=== PATIENT | female | born 1960 | race Asian ===

== ENCOUNTER 2024-07-28 16:38 | Emergency (ER) | payer OTHER, SELFPAY ==
[2024-07-28 16:41] VITALS: BP 153/90
--- NOTE | 2024-07-28 16:45 | ED.GENMED ---
History of Present Illness
General
Chief Complaint: Heart Rate Problem
Time Seen by Provider: 07/28/24 16:44
History of Present Illness
History of Present Illness:
Patient is a 63-year-old woman with history of thyroid cancer status post thyroidectomy currently on levothyroxine presenting to the emergency department with SVT that is now resolved. Patient states that she was sitting watching TV when she
noticed that she was having palpitations. She checked her Apple Watch and her heart rate was in the 170s. She tried readjusting positions and relaxing however it remained elevated for 30 minutes. Her friend then drove [facility] and she
was found to be in SVT. Medics were called and they gave her 6 mg adenosine rate response. Patient is now back to her baseline. She denies any chest pain or chest pain with exertion or shortness of breath. She states that she drinks a small
amount of wine every night before bed. N drinks 1 cup of coffee in the morning. o other drug use. Denies any leg swelling hemoptysis pleuritic pain recent travel or malignancy. She has never seen a arch support technician. Has never happened to her
before. No recent illnesses. Patient does state that she recently started seeing a primary care doctor and she was having issues with her thyroid numbers being off. She does state that most recently they were almost normal and they medication was
adjusted.
Past History
Past History
ED Past Medical History: None
ED Past Surgical History: Other (Thyroidectomy)
Social History
Tobacco: Non-smoker
Alcohol: None
Personal:
Living: with family
Phy Exam
Physical Exam
Physical Exam:
GENERAL: in no acute distress
HEENT: normocephalic, extraocular movements intact, moist oral mucosa
NECK: normal inspection
RESPIRATORY: no respiratory distress, clear to auscultation bilaterally
CARDIOVASCULAR: regular rate and rhythm
ABDOMEN/: soft, non-distended, non-tender to palpation, no rebound or guarding
EXTREMITIES: non-tender, no edema/swelling
NEUROLOGIC: awake and alert, moves all extremities
SKIN: warm
Course
Orders/Labs/Results
Orders:
Orders
07/28/24 16:44
Electrocardiogram (*1) Urgent
Reason for Study: Palpitations
EKG- Treatment ONCE
07/28/24 16:48
Basic Metabolic Panel Urgent
Complete Blood Count/With Diff Urgent
Free T4 Urgent
Magnesium Urgent
Thyroid profile [TSH Reflex To Free T4] Urgent
Abnormal Lab Results
07/28/24
16:48
Hct 36.9 L %
(37.0-47.0)
BUN 27 H mg/dl
(7-17)
Glucose 187 H mg/dl
(70-99)
TSH (Reflex) 38.70 H uIU/ml
(0.47-4.68)
Free T4 0.75 L ng/dl
(0.78-2.19)
07/28/24 16:48
07/28/24 16:48
Vital Signs
Initial and Last Documented VS:
Initial Vital Signs
Temp Pulse Resp BP Pulse Ox
97.8 F 93 18 153/90 99
07/28/24 16:41 07/28/24 16:41 07/28/24 16:41 07/28/24 16:41 07/28/24 16:41
Last Documented Vital Signs
Temp Pulse Resp BP Pulse Ox
97.8 F 93 18 153/90 99
07/28/24 16:41 07/28/24 16:41 07/28/24 16:41 07/28/24 16:41 07/28/24 16:41
MDM/Problems Addressed
Differential Diagnosis Includes:
Patient is a 63-year-old woman with history of thyroid cancer status post thyroidectomy currently on levothyroxine presenting to the emergency department with an episode of SVT that aborted after adenosine. Vitals here notable for heart rate in the
90s. Per my interpretation of the monitor she is in normal sinus rhythm. Exam is otherwise reassuring. I did review the E[facility] and that is consistent with SVT per my interpretation. Will check electrolytes including magnesium and
thyroid cascade. Will repeat EKG here. History and exam not consistent with PE or ACS. Patient does not have any risk factors for coronary artery disease.
*Critical Care Note
Total Time (30-74mins, 75-104mins- exclusive of procedures): Not Applicable
Update Note
Update Note:
On reevaluation patient resting comfortably. No further episodes of SVT while in the emergency department. Blood work shows an elevated TSH with a slightly low free T4. We discussed this in detail patient will follow-up with her PCP for
adjustments in her levo thyroxine. We discussed following up with PCP regarding initial episode of SVT but the patient requesting cardiology follow-up so we will give phone number for them. Strict return precautions given. Will discharge at this
time.
ED Attending Note
-
Portions of this chart may have been created with voice recognition software.� Occasional wrong word or��sound alike� substitutions may have occurred due to the inherent limitations of voice recognition software.
Discharge Plan
Departure
Patient Disposition: Home (Routine Discharge)
Date of Disposition: 07/28/24
Time of Disposition: 18:30
Patient with high blood pressure during this ER visit?: No
Discharge Problem:
Paroxysmal supraventricular tachycardia
Instructions: Vagal maneuvers, Supraventricular tachycardia (SVT)
Prescriptions:
No Action
hydrocodone-acetaminophen 1 TABLET tablet
1 tab PO Q4HPRN PRN (Reason: Pain) Qty: 10 0RF
Referrals:
Se Yanez MD [Active] -
Khadra Jolly MD [Family Provider] -
Activity Restrictions/Additional Instructions:
You were seen in the Emergency Department today for SVT. While you are here your heart rate was in normal rhythm. Blood work did show a slightly low free T4 level. Please talk to your primary care doctor to adjust the levothyroxine.
If this happens to you again, please follow the vagal maneuvers that we discussed and call [phone].
We would like for you to follow up with your primary care physician as well as a arch support technician for further evaluation. If you experience fever, worsening of your symptoms, or develop any other new or concerning symptoms, please return to the
Emergency Department immediately.
Please see the attached sheet for additional information.
Interventions
Interventions:
*Risk Screen - Suicide Last Done: 07/28/24 16:41
*General Assessment Last Done: 07/28/24 16:41
*Neglect/Abuse Screening Last Done: 07/28/24 16:41
ED- Cardiac Assessment Last Done: 07/28/24 16:52
ED- Pulmonary Assessment Last Done: 07/28/24 16:52
Discharge Date and Time
Print Language: IRISH
[2024-07-28 16:47] VITALS: BMI 21.6
[2024-07-28 16:55] LABS: % Basophils 0.2 % (0-2); % Eosinophils 0.2 % (0-6); % Immature Granulocytes 0.5 % (0-0.5); % Lymphocytes 29.1 % (20.5-51.1); % Monocytes 4.8 % (1.7-9.3); % Neutrophils 65.2 % (42.2-75.2); Absolute Lymphocytes 1.8 10^3/uL (1.2-3.4); Absolute Monocytes 0.3 10^3/uL (0.1-0.6); Absolute Neutrophils 3.9 10^3/uL (1.4-6.5); Hematocrit 36.9 % (37.0-47.0); Hemoglobin 12.9 g/dL (12.0-16.0); Mean Corpuscular Hgb 30.7 pg (27.0-31.0); Mean Corpuscular Volume 87.9 fL (81.0-99.0); Mean Platelet Volume 10.3 fL (7.4-10.4); Nucleated Red Blood Cells % 0 %; Platelet Count 186 10^3/uL (130-400); Red Cell Dist. Width 12.6 % (11.5-14.5)
[2024-07-28 17:29] LABS: Blood Urea Nitrogen 27 mg/dl (7-17); Calcium 9.5 mg/dl (8.4-10.2); Carbon Dioxide 24 mmol/L (22-30); Chloride 104 mmol/L (98-107); Estimated Creatinine Clearance 65 ml/min; Glucose 187 mg/dl (70-99); Potassium 3.9 mmol/L (3.5-5.1); Sodium 140 mmol/L (135-145); eGFR > 60.00
[2024-07-28 17:33] VITALS: BP 135/89
[2024-07-28 18:00] VITALS: BP 119/82
[2024-07-28 18:18] LABS: Free T4 0.75 ng/dl (0.78-2.19)
== END 2024-07-28 19:36 | disposition home or self-care (01) ==
LOC: EMR 16:38
PROVIDERS: EMERGENCY PHYSICIAN Student in an Organized Health Care Education/Training Program; FAMILY PHYSICIAN Internal Medicine
DX: I47.19 Other supraventricular tachycardia (principal)
CPT/HCPCS: 99284; 80048; 83735; 84439; 84443; 85025; 93005